=== PATIENT | female | born 2000 | race Caucasian/White ===

== ENCOUNTER 2018-07-14 23:47 | Emergency (ER) | payer OTHER ==
[~2018-07-14] VITALS: Ht 157.5 cm; Wt 49.1 kg
[2018-07-14 23:54] VITALS: BP 135/72; TEMP 98.9
[2018-07-15] MEDS ORDERED: ALLEGRA 60MG TA60 MG PO (01:16)
[2018-07-15] MEDS ORDERED: ALDACTONE50 MG PO (01:16)
[2018-07-15] MEDS ORDERED: PROAIR HFA0.09 MG/AC IH (01:17)
[2018-07-15] MEDS ORDERED: EPIPEN 2-PAK1 MG/ML IM (01:17)
[2018-07-15] MEDS ORDERED: BREO IH (01:17)
[2018-07-15] MEDS ORDERED: NEXPLANON68 MG ID (01:17)
[2018-07-15] MEDS ORDERED: NORCO 325 MG-51 TAB PO (01:39)
[2018-07-15 02:22] VITALS: PULSE 95
== END 2018-07-15 02:23 | disposition home or self-care (01) ==
LOC: COL.ER 23:47
DX: K04.7 Periapical abscess without sinus (principal); J45.909 Unspecified asthma, uncomplicated; Z79.51 Long term (current) use of inhaled steroids
CPT/HCPCS: J8540

== ENCOUNTER 2018-08-30 08:15 | Outpatient (RCR) | payer OTHER ==
[~2018-08-30 08:15] MED LIST: ALDACTONE50 MG PO; ALLEGRA 60MG TA60 MG PO; BREO IH; EPIPEN 2-PAK1 MG/ML IM; NEXPLANON68 MG ID; NORCO 325 MG-51 TAB PO; PROAIR HFA0.09 MG/AC IH
== END 2018-11-19 | disposition home or self-care (01) ==
LOC: WSST
DX: J38.3 Other diseases of vocal cords (principal)